=== PATIENT | male | born 1995 | race Caucasian/White ===

== ENCOUNTER → 2017-12-27 | Outpatient (CLI) | payer OTHER ==
--- NOTE | 2017-12-27 10:25 | RADIOLOGY REPORT (SQ) ---
EXAM DESCRIPTION: U/S LTD DUPLEX ART/JESSI FLOW; U/S RETROPERITON (RENAL/AORTA) COMPLETED DATE/TIME: 12/27/2017 10:12 am REASON FOR STUDY: HTN/CHRISTIAN I70.1 ATHEROSCLEROSIS OF RENAL ARTERY I15.0 RENOVASCULAR HYPERTENSION COMPARISON: None. TECHNIQUE: Realtime and static grayscale images acquired. Selected color Doppler, velocities and spe ctral images recorded. LIMITATIONS: Proximal renal arteries as they arise off the aorta were difficult to visualize due to midline bowel gas FINDINGS: RIGHT KIDNEY: RENAL ARTERY VELOCITIES: At the hilum, 90 cm/sec. Segmental artery velocity 58 cm/sec. RENAL VEIN: Color doppler flow present, patent. VELOCITY RATIO: 1.1. Normal waveforms. KIDNEY: 11 cm in length. There is mild increased echogenicity of the renal cortex with normal thic kness. No renal cysts or masses. No hydronephrosis or intrarenal stones. LEFT KIDNEY: RENAL ARTERY VELOCITIES: At the hilum, 89 cm/sec. Segmental artery velocity 48 cm/sec. RENAL VEIN: Color doppler flow present, patent. VELOCITY RATIO: 1.1. Normal waveforms. KIDNEY: 10.4 cm in length with grossly normal echogenicity and cortical thickness. No cysts gem s or stones. No hydronephrosis BLADDER: Decompressed, not well seen OTHER: No other significant finding. IMPRESSION: NO DOPPLER EVIDENCE OF HEMODYNAMICALLY SIGNIFICANT RENAL ARTERY STENOSIS. COMMENT: NORMAL RENAL ARTERY/AORTA VELOCITY RATIO IS LESS THAN OR EQUAL TO 3.5. TECHNICAL DOCUMENTATION: JOB ID: [id number] [employer]!- All Rights Reserved Reading location - IP/workstation name: [email or web address]
--- NOTE | 2017-12-27 10:25 | RADIOLOGY REPORT (SQ) ---
EXAM DESCRIPTION: U/S LTD DUPLEX ART/JESSI FLOW; U/S RETROPERITON (RENAL/AORTA) COMPLETED DATE/TIME: 12/27/2017 10:12 am REASON FOR STUDY: HTN/CHRISTIAN I70.1 ATHEROSCLEROSIS OF RENAL ARTERY I15.0 RENOVASCULAR HYPERTENSION COMPARISON: None. TECHNIQUE: Realtime and static grayscale images acquired. Selected color Doppler, velocities and spe ctral images recorded. LIMITATIONS: Proximal renal arteries as they arise off the aorta were difficult to visualize due to midline bowel gas FINDINGS: RIGHT KIDNEY: RENAL ARTERY VELOCITIES: At the hilum, 90 cm/sec. Segmental artery velocity 58 cm/sec. RENAL VEIN: Color doppler flow present, patent. VELOCITY RATIO: 1.1. Normal waveforms. KIDNEY: 11 cm in length. There is mild increased echogenicity of the renal cortex with normal thic kness. No renal cysts or masses. No hydronephrosis or intrarenal stones. LEFT KIDNEY: RENAL ARTERY VELOCITIES: At the hilum, 89 cm/sec. Segmental artery velocity 48 cm/sec. RENAL VEIN: Color doppler flow present, patent. VELOCITY RATIO: 1.1. Normal waveforms. KIDNEY: 10.4 cm in length with grossly normal echogenicity and cortical thickness. No cysts gem s or stones. No hydronephrosis BLADDER: Decompressed, not well seen OTHER: No other significant finding. IMPRESSION: NO DOPPLER EVIDENCE OF HEMODYNAMICALLY SIGNIFICANT RENAL ARTERY STENOSIS. COMMENT: NORMAL RENAL ARTERY/AORTA VELOCITY RATIO IS LESS THAN OR EQUAL TO 3.5. TECHNICAL DOCUMENTATION: JOB ID: [id number] [employer]- All Rights Reserved Reading location - IP/workstation name: COUNT INCLUDES THE [facility]
== END ==
LOC: RAD 09:06
PROVIDERS: ATTEND Student in an Organized Health Care Education/Training Program
DX: I70.1 Atherosclerosis of renal artery (principal); I15.0 Renovascular hypertension
CPT/HCPCS: 76770; 93976